=== PATIENT | male | born 1965 | race Caucasian/White ===

== ENCOUNTER → 2017-05-01 | Outpatient (CLI) | payer OTHER ==
[~2017-05-01] MED LIST: AFRIN MENTHOL S15 ML NS; AMBEREN; CRESTOR; ENAL0; KEFLEX500 MG PO; LO-DOSE ASPIRIN81 M1 PO; NEXIUM; OCEAN45 ML NS
--- NOTE | ~2017-05-01 | EXE ---
[facility] [place] [address] STRESS ECHOCARDIOGRAM Name: WILLIAM PARK Room #: REG Rohit#: [id number] Admission: 05/01/17 Attend Phys: Les Vegas, Discharge: Date of : 69 Date of Service: 05/03/17 0837 Report #: [id number] THIS REPORT FOR: //name// APPROVED REPORT Exam: Stress Echocardiogram Indication: Elevated calcium score Patient Location: Out-Patient Stress Nurse: Ivy Strong, RN, Samantha Fisher RN Status: routine Ht: 6 ft 1 in HR: 57 bpm BP: 149/87 mmHg Rhythm: NSR Medical History Allergies: No known drug allergies Cardiac Risk Factors: HTN, Hyperlipidemia Procedure The patient underwent an Exercise Stress Test using the Jones Protocol. Blood pressure, heart rate, and EKG were monitored. An Echocardiogram was performed by solder technician in four stages in quad fashion. At peak stress, four selected images were obtained and placed side by side with resting images for comparison. Stress Test Details Stress Test: Exercise stress testing was performed using a Jones protocol. HR Resting HR: 57 bpm Max Heart Rate (APMHR): 171 bpm Max HR Achieved: 164 bpm Target HR (85% APMHR): 145 bpm % of APMHR: 95 Recovery HR: 94 bpm HR response to stress: Normal HR response to stress BP Resting BP: 149/87 mmHg Max BP: 200/84 mmHg Recovery BP: 164/86 mmHg ECG Clinical Reason for Termination: moderate fatigue [facility] [address] [place] [address] STRESS ECHOCARDIOGRAM Name: WILLIAM PARK Room #: REG [facility].#: [id number] Admission: 05/01/17 Attend Phys: Les Vegas, Discharge: Date of : 69 Date of Service: 05/03/17836 Report #: [id number] Exercise duration: 15 min sec Exercise capacity: 17.5 METs Pre-Stress Echo The resting Echocardiogram showed normal left ventricular contractility with an estimated Ejection Fraction of about 60-65%. Trivial MR, trivial TR Post-Stress Echo The stress Echocardiogram showed normal left ventricular contractility with an estimated Ejection Fraction of about >70%. Conclusion Clinical Response: Non-ischemic Exercise Capacity: Superior Stress ECG Response: Non-ischemic Stress Echo Images: Non-ischemic Other Information Study Quality: Adequate <ELECTRONICALLY SIGNED> By: Les Vegas MD, FACC 05/03/17836 6 6 Les Vegas MD, FACC /INF
== END ==
LOC: CV 08:23
DX: I25.10 Atherosclerotic heart disease of native coronary artery without angina pectoris (principal); I10 Essential (primary) hypertension; Z82.49 Family history of ischemic heart disease and other diseases of the circulatory system

== ENCOUNTER → 2019-09-25 | Outpatient (CLI) | payer OTHER | LOC: SJCVCIMAG 07:37 | DX: I08.1 Rheumatic disorders of both mitral and tricuspid valves (principal); I25.10 Atherosclerotic heart disease of native coronary artery without angina pectoris; I10 Essential (primary) hypertension; E78.5 Hyperlipidemia, unspecified ==

== ENCOUNTER → 2020-06-23 | Outpatient (CLI) | payer BC, OTHER | LOC: SJCVCIMAG 08:05 | PROVIDERS: ATTEND Internal Medicine Cardiovascular Disease | DX: I07.1 Rheumatic tricuspid insufficiency (principal); I27.20 Pulmonary hypertension, unspecified; I25.10 Atherosclerotic heart disease of native coronary artery without angina pectoris ==